=== PATIENT | female | born 1940 | race Caucasian/White ===

== ENCOUNTER 2016-11-05 10:11 | Outpatient (CLI) ==
[2016-11-05] MEDS ORDERED: PROLIA SUBCUT STA (10:21)
== END 2016-11-05 10:12 | disposition home or self-care (01) ==
LOC: OPMED 10:11
PROVIDERS: ATTEND Family Medicine
DX: M81.0 Age-related osteoporosis without current pathological fracture (principal)
CPT/HCPCS: 96372